=== PATIENT | male | born 1990 | race Caucasian/White ===

== ENCOUNTER 2018-12-08 21:24 | Emergency (ER) | payer BC ==
[2018-12-08] MEDS ORDERED: Sodium Chloride 0.9% 10 ML Syringe FLUSH PRN (21:50)
[2018-12-08] MEDS: Lactated Ringers 1,000 ML IV ONE (22:00)
--- NOTE | 2018-12-08 22:02 | EDM.PDOC ---
ED HPI GENERAL MEDICAL PROBLEM - General Chief Complaint: Gastrointestinal Problem Stated Complaint: THROWING UP ALOT Time Seen by Provider: 12/08/18 21:24 Source of Information: Reports: Patient - History of Present Illness INITIAL COMMENTS - FREE TEXT/NARRATIVE: Patient comes in to the emergency department with sudden onset of abdominal pain. Patient states that the abdominal discomfort started about 5 PM this evening and has intensified since then. He states at around 7 PM is when he started vomiting and having excessive diarrhea. He states that sharpshooting cramping sensation in the abdominal cavity. His noted that he had some chicken that had care remanence on it and was Slimy in nature yesterday. However , it was cooked for about 6-8 hours and the slow cooker. Prior to that, the patient has recently just returned from an extended vacation in the [facility] where he indulged in aquatic species including calamari and crab. Also noted while he was in [place] he ended up eating a pastry with a maggot it inside of it. Patient denies having any fever or body aches with the sudden onset of abdominal discomfort. Denies having any recent illnesses or any other infectious agents. Onset: Sudden - Related Data Allergies Allergy/AdvReac Type Severity Reaction Status Date / Time No Known Allergies Allergy Verified 11/05/15 10:51 Home Meds: Home Meds Esomeprazole [NexIUM] 40 mg PO DAILY 12/08/18 [History] Past Medical History - Past Health History Medical/Surgical History: Denies Medical/Surgical History ED ROS GENERAL - Review of Systems Review Of Systems: See Below Constitutional: Reports: No Symptoms HEENT: Reports: No Symptoms Respiratory: Reports: No Symptoms Cardiovascular: Reports: No Symptoms Endocrine: Reports: No Symptoms GI/Abdominal: Reports: Abdominal Pain, Anorexia, Diarrhea, Nausea, Vomiting : Reports: No Symptoms Musculoskeletal: Reports: No Symptoms Skin: Reports: No Symptoms Neurological: Reports: No Symptoms Psychiatric: Reports: No Symptoms Hematologic/Lymphatic: Reports: No Symptoms Immunologic: Reports: No Symptoms ED EXAM, GENERAL - Physical Exam Exam: See Below Exam Limited By: No Limitations General Appearance: Alert, WD/WN, Mild Distress Neck: Normal Inspection, Supple, Non-Tender, Full Range of Motion Respiratory/Chest: No Respiratory Distress, Lungs Clear, Normal Breath Sounds, No Accessory Muscle Use Cardiovascular: Normal Peripheral Pulses, Regular Rate, Rhythm, No Edema GI/Abdominal: No Organomegaly, No Mass, Pelvis Stable, Guarding, Tender, Abnormal Bowel Sounds, Other (positive McBurney's sign) Back Exam: Normal Inspection, Full Range of Motion Extremities: Normal Inspection, Normal Range of Motion, Normal Capillary Refill Neurological: Alert, Oriented Psychiatric: Normal Affect, Normal Mood Skin Exam: Warm, Dry, Intact, Normal Color Course - Vital Signs Last Recorded V/S: Last Vital Signs Temp 37.6 C 12/08/18 23:25 Pulse 85 12/08/18 23:25 Resp 16 12/08/18 23:25 BP 125/66 12/08/18 23:25 Pulse Ox 96 12/08/18 23:25 - Orders/Labs/Meds Orders: Active Orders 24 hr Category Date Time Status Abdomen Pelvis w Cont [CT] Stat Exams 12/08/18 21:50 Taken CULTURE BLOOD [BC] Stat Lab 12/09/18 00:05 Ordered CULTURE BLOOD [BC] Stat Lab 12/09/18 00:05 Ordered H PYLORI STOOL ANTIGEN [MREF] Stat Lab 12/08/18 21:51 Ordered LACTIC ACID [CHEM] Stat Lab 12/09/18 00:05 Ordered LACTOFERRIN, STOOL [OP] Stat Lab 12/08/18 21:51 Ordered OVA & PARASITES BY IMMUNOASSAY [MREF] Stat Lab 12/08/18 22:22 Ordered STOOL CULTURE/SHIGA TOXIN [MREF] Stat Lab 12/08/18 21:51 Ordered Ciprofloxacin in D5W [Cipro in D5W 400 MG/200 ML] 400 Med 12/09/18 00:09 Ordered mg Premix Bag 1 bag IV STAT Ondansetron [Zofran] Med 12/08/18 23:51 Active 4 mg IVPUSH Q8H PRN Sodium Chloride 0.9% [Saline Flush] Med 12/08/18 21:50 Active 10 ml FLUSH ASDIRECTED PRN metroNIDAZOLE/Normal Saline [Flagyl 500 MG in NS 100 ML Med 12/09/18 00:09 Ordered ] 500 mg Premix Bag 1 bag IV ONETIME Blood Culture x2 Reflex Set [OM.PC] Stat Oth 12/09/18 00:05 Ordered Peripheral IV Insertion Adult [OM.PC] Stat Oth 12/08/18 21:48 Ordered Medication Orders Ciprofloxacin/Dextrose 400 mg/ (Premix) 200 mls @ 200 mls/hr IV STAT ONE Stop: 12/09/18 01:08 Metronidazole 500 mg/ Premix 100 mls @ 100 mls/hr IV ONETIME ONE Stop: 12/09/18 01:08 Ondansetron HCl (Zofran) 4 mg IVPUSH Q8H PRN PRN Reason: Nausea Sodium Chloride (Saline Flush) 10 ml FLUSH ASDIRECTED PRN PRN Reason: Keep Vein Open Labs: Laboratory Tests 12/08/18 12/08/18 12/08/18 Range/Units 22:05 22:05 22:05 WBC 12.0 H (4.0-10.0) x10^3/uL RBC 5.40 (4.5-6.0) x10^6/uL Hgb 15.3 (14.0-18.0) g/dL Hct 44.7 (40.0-52.0) % MCV 82.8 (78.0-93.0) fL MCH 28.3 (26.0-32.0) pg MCHC 34.2 (32.0-36.0) g/dL RDW Coeff of Korey 13.5 (10.0-15.0) % Plt Count 177 (130-400) x10^3/uL Neut % (Auto) 90.8 H (50.0-80.0) % Lymph % (Auto) 3.5 L (25.0-50.0) % [place] % (Auto) 5.4 (2.0-11.0) % Eos % (Auto) 0.2 (0.0-4.0) % Baso % (Auto) 0.1 L (0.2-1.2) % Sodium 142 (136-145) mmol/L Potassium 4.2 (3.5-5.1) mmol/L Chloride 103 (98-107) mmol/L Carbon Dioxide 28 (21-32) mmol/L Anion Gap 15.2 (10-20) mmol/L BUN 21 H (7-18) mg/dL Creatinine 1.1 (0.70-1.30) mg/dL Est Cr Clr Drug Dosing 110.72 mL/min Estimated GFR (MDRD) > 60 Glucose 121 H (74-106) mg/dL Calcium 8.8 (8.5-10.1) mg/dL Corrected Calcium 8.64 (8.5-10.1) mg/dL Total Bilirubin 0.9 (0.2-1.0) mg/dL AST 23 (15-37) U/L ALT 29 (16-63) U/L Alkaline Phosphatase 65 (46-116) U/L Creatine Kinase 132 (39-308) U/L Total Protein 7.6 (6.4-8.2) g/dL Albumin 4.2 (3.4-5.0) g/dL Globulin 3.4 Albumin/Globulin Ratio 1.24 Urine Color (YELLOW) Urine Appearance (CLEAR) Urine pH (5.0-8.0) Ur Specific Spencer Urine Protein (NEGATIVE) mg/dL Urine Glucose (UA) (NEGATIVE) mg/dL Urine Ketones (NEGATIVE) mg/dL Urine Occult Blood (NEGATIVE) Urine Nitrite (NEGATIVE) Urine Bilirubin (NEGATIVE) Urine Urobilinogen (0.2) EU/dL Ur Leukocyte Esterase (NEGATIVE) 12/08/18 Range/Units 23:50 WBC (4.0-10.0) x10^3/uL RBC (4.5-6.0) x10^6/uL Hgb (14.0-18.0) g/dL Hct (40.0-52.0) % MCV (78.0-93.0) fL MCH (26.0-32.0) pg MCHC (32.0-36.0) g/dL RDW Coeff of Korey (10.0-15.0) % Plt Count (130-400) x10^3/uL Neut % (Auto) (50.0-80.0) % Lymph % (Auto) (25.0-50.0) % [place] % (Auto) (2.0-11.0) % Eos % (Auto) (0.0-4.0) % Baso % (Auto) (0.2-1.2) % Sodium (136-145) mmol/L Potassium (3.5-5.1) mmol/L Chloride (98-107) mmol/L Carbon Dioxide (21-32) mmol/L Anion Gap (10-20) mmol/L BUN (7-18) mg/dL Creatinine (0.70-1.30) mg/dL Est Cr Clr Drug Dosing mL/min Estimated GFR (MDRD) Glucose (74-106) mg/dL Calcium (8.5-10.1) mg/dL Corrected Calcium (8.5-10.1) mg/dL Total Bilirubin (0.2-1.0) mg/dL AST (15-37) U/L ALT (16-63) U/L Alkaline Phosphatase (46-116) U/L Creatine Kinase (39-308) U/L Total Protein (6.4-8.2) g/dL Albumin (3.4-5.0) g/dL Globulin Albumin/Globulin Ratio Urine Color Yellow (YELLOW) Urine Appearance Slightly cloudy H (CLEAR) Urine pH 7.0 (5.0-8.0) Ur Specific Spencer 1.015 Urine Protein Negative (NEGATIVE) mg/dL Urine Glucose (UA) Negative (NEGATIVE) mg/dL Urine Ketones 15 H (NEGATIVE) mg/dL Urine Occult Blood Negative (NEGATIVE) Urine Nitrite Negative (NEGATIVE) Urine Bilirubin Negative (NEGATIVE) Urine Urobilinogen 1.0 (0.2) EU/dL Ur Leukocyte Esterase Negative (NEGATIVE) Meds: Medications Generic Name Dose Route Start Last Admin Trade Name Freq PRN Reason Stop Dose Admin Ciprofloxacin/Dextrose 400 mg/ 200 mls @ 200 mls/hr 12/09/18 00:09 Premix IV 12/09/18 01:08 STAT ONE Metronidazole 500 mg/ Premix 100 mls @ 100 mls/hr 12/09/18 00:09 IV 12/09/18 01:08 ONETIME ONE Ondansetron HCl 4 mg 12/08/18 23:51 Zofran IVPUSH Q8H PRN Nausea Sodium Chloride 10 ml 12/08/18 21:50 Saline Flush FLUSH ASDIRECTED PRN Keep Vein Open Discontinued Medications Generic Name Dose Route Start Last Admin Trade Name Freq PRN Reason Stop Dose Admin Hydromorphone HCl 0.5 mg 12/08/18 21:53 12/08/18 22:03 Dilaudid IVPUSH 12/08/18 21:54 0.5 mg ONETIME ONE Administration Hydromorphone HCl 0.5 mg 12/08/18 23:28 12/08/18 23:35 Dilaudid IVPUSH 12/08/18 23:29 0.5 mg ONETIME ONE Administration Lactated Ringer's 1,000 mls @ 1,000 mls/hr 12/08/18 22:07 12/08/18 22:00 Ringers, Lactated IV 12/08/18 23:06 1,000 mls/hr ONETIME ONE Administration Iopamidol 100 ml 12/08/18 22:37 12/08/18 22:37 Isovue-300 (61%) IVPUSH 12/08/18 22:38 100 ml ONETIME ONE Administration Ondansetron HCl 4 mg 12/08/18 22:00 12/08/18 22:06 Zofran IVPUSH 12/08/18 22:01 4 mg ONETIME ONE Administration Departure - Departure Time of Disposition: 12:20 Disposition: DC/Tfer to Acute Hospital 02 Condition: Good Clinical Impression: Enteritis Nausea & vomiting Qualifiers: Vomiting type: unspecified Vomiting Intractability: non-intractable Qualified Code(s): R11.2 - Nausea with vomiting, unspecified Abdominal pain Qualifiers: Abdominal location: generalized Qualified Code(s): R10.84 - Generalized abdominal pain - Discharge Information *PRESCRIPTION DRUG MONITORING PROGRAM REVIEWED*: Not Applicable *COPY OF PRESCRIPTION DRUG MONITORING REPORT IN PATIENT LAURE: Not Applicable Referrals: Brinda Ott, ENGINE ROOM HELPER [Primary Care Provider] - Forms: ED Department Discharge, Interfacility Transfer EMTALA - My Orders Last 24 Hours: My Active Orders 12/08/18 21:48 Peripheral IV Insertion Adult [OM.PC] Stat 12/08/18 21:50 Abdomen Pelvis w Cont [CT] Stat Sodium Chloride 0.9% [Saline Flush] 10 ml FLUSH ASDIRECTED PRN 12/08/18 21:51 H PYLORI STOOL ANTIGEN [MREF] Stat LACTOFERRIN, STOOL [OP] Stat STOOL CULTURE/SHIGA TOXIN [MREF] Stat 12/08/18 22:22 OVA & PARASITES BY IMMUNOASSAY [MREF] Stat 12/08/18 23:51 Ondansetron [Zofran] 4 mg IVPUSH Q8H PRN 12/09/18 00:05 CULTURE BLOOD [BC] Stat CULTURE BLOOD [BC] Stat LACTIC ACID [CHEM] Stat Blood Culture x2 Reflex Set [OM.PC] Stat 12/09/18 00:09 Ciprofloxacin in D5W [Cipro in D5W 400 MG/200 ML] 400 mg Premix Bag 1 bag IV STAT metroNIDAZOLE/Normal Saline [Flagyl 500 MG in NS 100 ML] 500 mg Premix Bag 1 bag IV ONETIME - Assessment/Plan Last 24 Hours: My Active Orders 12/08/18 21:48 Peripheral IV Insertion Adult [OM.PC] Stat 12/08/18 21:50 Abdomen Pelvis w Cont [CT] Stat Sodium Chloride 0.9% [Saline Flush] 10 ml FLUSH ASDIRECTED PRN 12/08/18 21:51 H PYLORI STOOL ANTIGEN [MREF] Stat LACTOFERRIN, STOOL [OP] Stat STOOL CULTURE/SHIGA TOXIN [MREF] Stat 12/08/18 22:22 OVA & PARASITES BY IMMUNOASSAY [MREF] Stat 12/08/18 23:51 Ondansetron [Zofran] 4 mg IVPUSH Q8H PRN 12/09/18 00:05 CULTURE BLOOD [BC] Stat CULTURE BLOOD [BC] Stat LACTIC ACID [CHEM] Stat Blood Culture x2 Reflex Set [OM.PC] Stat 12/09/18 00:09 Ciprofloxacin in D5W [Cipro in D5W 400 MG/200 ML] 400 mg Premix Bag 1 bag IV STAT metroNIDAZOLE/Normal Saline [Flagyl 500 MG in NS 100 ML] 500 mg Premix Bag 1 bag IV ONETIME Assessment:: 1. abdominal pain-enteritis 2. Nausea 3. vomiting 4. Recent ingestion of raw fish Plan: 1. Labs completed in the ER. 2. CT scan completed in the ER reveals enteritis. 3. IV with fluids given 4. Pain medication given with relief for approx 45 mins. repeat to help with discomfort given 5. Antinausea medication given with relief for approx 45 mins repeat to help with discomfort given 6. Dr. Franklin contacted regarding possible admit. Recommendation would be to have this pt transferred to higher level of care for further medical management and treatment 7. Dr. Escobar contacted at [facility] who is willing to admit for further medical management. Recommends starting flagyl and cipro prior to transfer if possible. 8. Pt was unable to provide us a stool sample. 9. All questions and concerns addressed prior to discharge.
[2018-12-08] MEDS: HYDROmorphone 1 MG/ML Syringe IVPUSH ONE ×2 (22:03→23:35)
[2018-12-08] MEDS: Ondansetron 4 MG/2 ML SDV IVPUSH ONE (22:06)
[2018-12-08 22:31] LABS: ANION GAP 15.2 mmol/L (10-20); CHLORIDE,CL 103 mmol/L (98-107); SODIUM,NA 142 mmol/L (136-145)
[2018-12-08] MEDS: Iopamidol 612 MG/ML 100 ML Bottle IVPUSH ONE (22:37)
[2018-12-08] MEDS ORDERED: Ondansetron 4 MG/2 ML SDV IVPUSH PRN (23:51)
[2018-12-09] MEDS: metroNIDAZOLE/Normal Saline 500 MG in Premix Bag 1 BAG IV ONE (00:29)
[2018-12-09] MEDS: Ciprofloxacin in D5W 400 MG in Premix Bag 1 BAG IV ONE ×2 (00:32)
[2018-12-09 00:48] VITALS: BP 117/59
--- NOTE | 2018-12-09 08:06 | CT ---
[id number] CT/CT Abdomen Pelvis W IV EXAM: CT Abdomen Pelvis W IV CLINICAL DATA: SUDDEN ABDOMINAL PAIN. COMPARISON STUDY: None. FINDINGS: Lung bases are clear. Dependent atelectasis at the right lung base. Liver, spleen, gallbladder, pancreas, adrenal glands, and kidneys are unremarkable. No bowel obstruction or inflammation. Visualized and appears normal. No lymphadenopathy, free fluid, or pneumoperitoneum. Scattered changes of spondylosis the spine. No fracture or osseous lesion. IMPRESSION: No CT findings within the abdomen or pelvis to explain the patient's symptoms.. Sai Maher DO 12/09/18 0805 Thank you for allowing us to participate in the care of your patient.
== END 2018-12-09 00:45 | disposition short-term general hospital (02) ==
LOC: VM.ED 21:24
DX: K52.9 Noninfective gastroenteritis and colitis, unspecified (principal); Z79.899 Other long term (current) drug therapy
CPT/HCPCS: 36415; 74177; 80053; 81003; 82550; 83605; 85025; 87040; 96361; 96374; 96375; 96376; 99285-25; J0744; J1170; J2405; J3490; J7120; Q9967

== ENCOUNTER 2022-09-29 03:55 | Emergency (ER) | payer BC ==
[2022-09-29] MEDS ORDERED: Sodium Chloride 0.9% 10 ML Syringe FLUSH PRN (04:12)
[2022-09-29] MEDS ORDERED: Lactated Ringers 1,000 ML IV ONE (04:13)
[2022-09-29] MEDS ORDERED: HYDROmorphone 0.5 MG/0.5 ML Syringe IVPUSH ONE (04:13)
[2022-09-29] MEDS ORDERED: Ondansetron 4 MG/2 ML SDV IVPUSH ONE (04:13)
[2022-09-29 04:30] VITALS: BP 119/82; PULSE 64
[2022-09-29 04:59] LABS: CHLORIDE,CL 104 mmol/L (98-107); SODIUM,NA 141 mmol/L (136-145)
[2022-09-29 05:02] LABS: PTT,PARTIAL THROMBOPLSTIN TIME 22.7 SEC (20.5-30.9)
[2022-09-29 05:04] LABS: ESTIMATED GFR 103 mL/min (>=60)
[2022-09-29] MEDS ORDERED: Iopamidol 612 MG/ML 100 ML Bottle IVPUSH ONE (05:09)
[2022-09-29 05:16] LABS: CORONAVIRUS COVID-19 NAA NEGATIVE (NEGATIVE); RESPIRATORY SYNCYTIAL VIR NAA NEGATIVE (NEGATIVE)
[2022-09-29] MEDS ORDERED: Tamsulosin 0.4 MG Cap.ER PO ONE (06:58)
[2022-09-29] MEDS ORDERED: Take Home: Acetaminophen/HYDROcodone 325-10 MG, 5 Tab Pack PO ONE (06:58)
== END 2022-09-29 07:05 | disposition home or self-care (01) ==
LOC: VM.ED 03:55
DX: N13.2 Hydronephrosis with renal and ureteral calculous obstruction (principal); Z20.822 Contact with and (suspected) exposure to COVID-19
CPT/HCPCS: 0241U; 74177; 80053; 81001; 83735; 84100; 85025; 85610; 85730; 86140; 96361; 96374; 96375; 99284; 99284-25; A9270-GY; J1170; J2405; J7120; Q9967

== ENCOUNTER 2023-12-26 15:54 | Emergency (ER) | payer BC ==
[2023-12-26 16:56] LABS: CORONAVIRUS COVID-19 NAA NEGATIVE (NEGATIVE); INFLUENZA A NAA NEGATIVE (NEGATIVE); INFLUENZA B NAA POSITIVE (NEGATIVE)
[2023-12-26 16:57] LABS: RESPIRATORY SYNCYTIAL VIR NAA NEGATIVE (NEGATIVE)
[2023-12-26 19:06] VITALS: BP 106/67; PULSE 91
== END 2023-12-26 17:01 | disposition home or self-care (01) ==
LOC: VM.ED 15:54 → SUPCPDRO 15:54 → VM.ED 17:01
DX: J10.1 Influenza due to other identified influenza virus with other respiratory manifestations (principal)
CPT/HCPCS: 0241U; 99283; 99284